=== PATIENT | male | born 1940 | race Caucasian/White ===

== ENCOUNTER 2019-05-28 12:49 | Inpatient (IN) | payer OTHER ==
[~2019-05-28] VITALS: Ht 172.7 cm; Wt 104.3 kg
--- NOTE | ~2019-05-28 | HC ---
[facility] [place] [address] CONSULTATION Name: SAM JEFFRIES Room #: 213-P ADM IN M.R.#: [id number] Admission: 05/28/19 Attend Phys: Cassandra Martínez MD Discharge: Date of : 40 Report #: [id number] THIS REPORT FOR: cc: SARAH - Family physician unknown SARAH - Family physician unknown Ana Martins MD ~ CC: Cassandra SMITH unknown REASON FOR CONSULTATION: Elevated creatinine. HISTORY OF PRESENT ILLNESS: This is a 79-year-old with extensive past medical history including severe cardiomyopathy with an ejection fraction of around 20%. He is status post AICD. He was admitted on 05/28/2019 with diarrhea, reduced oral intake. He was found to have diverticulitis and was initiated on appropriate treatment for that. He is also known to have ventricular tachycardia, COPD and was maintained on oxygen. He does not recall ever being told he has kidney problems. He does not see any kidney doctors. However, looking back, it does look like that the patient has a creatinine value of 1.5 back in 2010. No recent laboratory values before his recent admission on 05/28/2019. On presentation, his creatinine was 2.0 and had risen up to 2.4. The patient is currently being treated for diverticulitis, for C. diff. He is followed by Cardiology, GI. The patient ran into some issues with hypotension. His pacemaker also has fired during his hospital stay. It does look like that the patient's creatinine has been fluctuating in the last couple of days anywhere from 2 to 2.5. Most recently, his creatinine is down to 2.4. PAST MEDICAL HISTORY: 1. Cardiomyopathy. 2. Ejection fractions of around 20%. 3. Coronary artery disease, not amenable to any intervention. 4. Chronic obstructive pulmonary disease, maintained on oxygen. 5. Recent diverticulitis. 6. Chronic kidney disease based on prior laboratory values. 7. Hyperlipidemia. ALLERGIES: CONTRAST. MEDICATIONS: 1. Metoprolol. 2. Spironolactone. 3. Aspirin. 4. Albuterol. 5. Simvastatin. 6. Valsartan. FAMILY HISTORY: No known chronic kidney disease. [facility] [address] [place] [address] CONSULTATION Name: SAM JEFFRIES Room #: 213-P [facility] IN .R.#: [id number] Admission: 05/28/19 Attend Phys: Cassandra Martínez MD Discharge: Date of : 40 Report #: [id number] SOCIAL HISTORY: She denies drug or alcohol abuse. REVIEW OF SYSTEMS: GENERAL: Significant for lethargy and weakness before his presentation. CARDIOVASCULAR: No chest pain or palpitation, but his pacemaker has fired repeatedly. PULMONARY: Maintained on chronic oxygen. GASTROINTESTINAL: As per the history of present illness. GENITOURINARY: No frequency, no urgency. MUSCULOSKELETAL: No back pain, no morning stiffness. SKIN: No rash or ulcerations. PHYSICAL EXAMINATION: GENERAL: Alert, oriented, not in distress. VITAL SIGNS: Temperature 36.4, blood pressure is 133/68. HEAD AND NECK: No jugular venous distention. CHEST: No crackles. CARDIOVASCULAR: No rub detected. ABDOMEN: Soft, nontender. EXTREMITIES: Lower extremities, +2 edema. LABORATORY DATA: Reviewed. White blood cell count is 20.2. Sodium is 137, potassium is 3.5, BUN is 36, creatinine is 2.4. Vancomycin level back in 06/01/2019 was 11. C. diff positive. IMPRESSION AND PLAN: 1. Acute kidney injury. 2. Chronic kidney disease. 3. Cardiorenal syndrome. 4. Clostridium difficile. 5. Cardiomyopathy. 6. Hypertension. 7. Diverticulitis. 8. Status post coronary artery bypass graft with coronary artery disease. 9. Basic acute kidney injury is multifactorial and likely related to his cardiorenal syndrome, his current ongoing infectious issues including the diverticulitis and Clostridium difficile. He does have significant bilateral lower extremity edema. 10. Initiate diuresis. There is expected to see some rising of the creatinine with the diuresis initiation. 11. Initiate basic workup for his chronic kidney disease. 12. Baseline creatinine seems to be anywhere from 2-2.4; however, I would like to obtain the medical record from his primary care physician. The last creatinine I have on him back in 2010 was elevated at 1.5, suggesting chronic kidney disease, likely related to a cardiorenal syndrome. [address] [address] CONSULTATION Name: SAM JEFFRIES Room #: 213-P ADM IN M.R.#: [id number] Admission: 05/28/19 Attend Phys: Cassandra Martínez MD Discharge: Date of : 40 Report #: [id number] 13. Watch electrolytes. 14. Watch volume status. 15. Avoid nephrotoxins. By: 1048 [id number] Ana Martins, /nt
[~2019-05-28 12:49] MED LIST: ASPIRIN EC81 M1; DIOVAN160 MG; LIDODERM 5%1 PATCH TOP; NIASPAN ER 101000 M1; PERCOCET 5-3251 EACH PO; PREDNISONE50 MG PO; SIMVASTATIN40 MG; TOPROL XL50 MG; ZPAK PO
[2019-05-28 12:52] VITALS: BP 116/80
[2019-05-28 13:47] LABS: HEMATOCRIT 44.8 % (42.0-52.0); MCH 31.5 pg (26.0-34.0); MCHC 33.4 g/dL (28.0-37.0); MCV 94.1 fL (80.0-100.0); PLATELET COUNT 185 thou/uL (150-400); RBC 4.76 mil/uL (4.50-6.00); RDW 13.6 % (10.5-14.5); WBC 14.5 thou/uL (4.0-11.0)
[2019-05-28 13:59] LABS: CALCIUM 9.2 mg/dL (8.5-10.1); POTASSIUM 4.1 mmol/L (3.5-5.1)
[2019-05-28 14:05] LABS: ALBUMIN 3.5 g/dL (3.4-5.0); TOTAL BILIRUBIN 1.1 mg/dL (<0.1-1.0); TOTAL PROTEIN 7.1 g/dL (6.4-8.2)
[2019-05-28 14:10] LABS: URINE BILIRUBIN 1+ (Negative); URINE BLOOD TRACE (Negative); URINE CLARITY CLEAR; URINE COLOR YELLOW; URINE GLUCOSE-RANDOM* NEGATIVE (Negative); URINE KETONES NEGATIVE (Negative); URINE LEUKOCYTES-REFLEX TRACE (Negative); URINE NITRITE-REFLEX NEGATIVE (Negative); URINE PROTEIN (DIPSTICK) NEGATIVE (Negative); URINE UROBILINOGEN 0.2 E.U./dl (0.2-1.0)
[2019-05-28 14:35] LABS: ABSOLUTE NEUTROPHILS 10.2 thou/uL (1.4-8.2); PLATELET ESTIMATE NORMAL
[2019-05-28 15:12] VITALS: BP 94/50
[2019-05-28 16:29] VITALS: BP 127/61
[2019-05-28] MEDS ORDERED: SIMVASTATIN80 MG PO (19:35)
[2019-05-28] MEDS ORDERED: VALSARTAN160 MG PO (19:36)
[2019-05-28] MEDS ORDERED: SPIRONOLACTONE25 M1 PO (19:36)
[2019-05-28] MEDS ORDERED: LOPRESSOR50 MG PO (19:38)
[2019-05-28] MEDS ORDERED: VENTOLIN HFA INH8 GM INH (19:47)
[2019-05-28] MEDS ORDERED: SYMBICORT160 MCG/4. INH (19:48)
[2019-05-28] MEDS ORDERED: SPIRIVA18 MCG INH (19:51)
[2019-05-28] MEDS ORDERED: ASA81BEC PO (19:52)
[2019-05-28] MEDS ORDERED: NF NEB (19:55)
[2019-05-28 19:57] VITALS: BP 95/72
[2019-05-29 00:48] VITALS: BP 91/49
[2019-05-29 06:15] VITALS: BP 99/47
[2019-05-29 06:25] LABS: CALCIUM 8.2 mg/dL (8.5-10.1); POTASSIUM 4.3 mmol/L (3.5-5.1)
[2019-05-29 08:12] VITALS: BP 98/40
--- NOTE | 2019-05-29 15:40 | 2DMMODE ---
[facility] [address] [place] [address] 2 D/M-MODE ECHOCARDIOGRAM Name: SAM JEFFRIES Room #: 456-P ADM IN M.R.#: [id number] Admission: 05/28/19 Attend Phys: Cassandra Martínez MD Discharge: Date of : 40 Report #: [id number] THIS REPORT FOR: cc: FAM - Family physician unknown FAM - Family physician unknown Joshua Piper MD ~ APPROVED REPORT Study performed: 05/29/2019 14:54:58 EXAM: Comprehensive 2D, Doppler, and color-flow Echocardiogram Patient Location: Bedside Room #: [facility] Status: stat BSA: 2.10 HR: 103 bpm BP: 98/40 mmHg Rhythm: Tachycardia Other Information Study Quality: Adequate Technically limited study due to COPD. Indications ICD discharge, hypotension. Hx: CABG, ISCM, COPD. 2D Dimensions RVDd: 40.14 mm IVSd: 8.50 (7-11mm) LVOT Diam: 24.53 (18-24mm) LVDd: 58.23 mm PWd: 7.68 (7-11mm) LVDs: 51.63 (25-40mm) Aortic Root: 31.10 mm Volumes Left Atrial Volume (Systole) Single Plane 4CH: 45.92 mL Single Plane 2CH: 49.32 mL LA ESV Index: 24.00 mL/m2 Aortic Valve AoV Peak Miguel.: 1.60 m/s AO Peak Gr.: 10.28 mmHg LVOT Max P.96 mmHg LVOT Max V: 0.99 m/s [facility] [address] [place] [address] 2 D/M-MODE ECHOCARDIOGRAM Name: SAM JEFFRIES Room #: 456-P ADM IN M.R.#: [id number] Admission: 05/28/19 Attend Phys: Paco Ortiz Discharge: Date of : 40 Report #: [id number] Vmax: 2.93 cm2 Pulmonary Valve PV Peak Miguel.: 1.30 m/s PV Peak Gr.: 6.77 mmHg Tricuspid Valve TR Peak Miguel.: 2.06 m/s RAP Estimate: 5.00 mmHg TR Peak Gr.: 17.00 mmHg PA Pressure: 22.00 mmHg Left Ventricle Left ventricle is at the upper limits of normal. There is normal left ventricular wall thickness. Left ventricular systolic function is mild to moderately decreased. LVEF is 25-30%. This study is not technically sufficient to allow evaluation of the LV diastolic function. Right Ventricle The right ventricle is normal size. Atria The left atrium size is normal. The right atrium size is normal. Aortic Valve The aortic valve is normal in structure. No aortic regurgitation is present. There is no aortic valvular stenosis. Mitral Valve The mitral valve is normal in structure. Trace to mild mitral regurgitation. Tricuspid Valve The tricuspid valve is normal in structure. Trace tricuspid regurgitation. Estimated PAP is 20-25mmHg. Pulmonic Valve Pulmonic valve is not well visualized. Great Vessels The aortic root is normal in size. Ascending aorta is not well visualized. IVC is normal in size and collapses >50% with inspiration. Pericardium There is no pericardial effusion. [facility] [address] [place] [address] 2 D/M-MODE ECHOCARDIOGRAM Name: SAM JEFFRIES Room #: 456-P ADM IN ..#: [id number] Admission: 05/28/19 Attend Phys: Paco Ortiz Discharge: Date of : 40 Report #: [id number] <Conclusion> Left ventricle is at the upper limits of normal. LVEF is 25-30%. The aortic valve is normal in structure. The mitral valve is normal in structure. Trace to mild mitral regurgitation. The tricuspid valve is normal in structure. Trace tricuspid regurgitation. Estimated PAP is 20-25mmHg. There is no pericardial effusion. <ELECTRONICALLY SIGNED> By: Joshua Piper MD 05/29/19 1540 39 39 Joshua Piper MD /INF
[2019-05-29 16:30] VITALS: BP 129/81
[2019-05-29 19:48] VITALS: BP 110/54
[2019-05-30 00:07] VITALS: BP 90/52
[2019-05-30 04:37] VITALS: BP 111/59
[2019-05-30 07:35] VITALS: BP 109/68
[2019-05-30 08:27] LABS: BE(vivo) -5.7 mmol/L (-2 to +3); HCO3 15.8 mmol/L (22.0-26.0); PCO2 22.1 mmHg (35.0-45.0); PO2 131.7 mmHg (80.0-100.0); pH 7.471 (7.360-7.450); sO2 98.9 % (92.0-98.0)
[2019-05-30 12:02] VITALS: BP 105/60
[2019-05-30 15:47] LABS: ABSOLUTE NEUTROPHILS 15.7 thou/uL (1.4-8.2); BASOPHILS 0.5 % (0.0-2.0); EOSINOPHILS 0.2 % (0.0-3.0); HEMATOCRIT 41.5 % (42.0-52.0); HEMOGLOBIN 13.7 gm/dL (14.0-18.0); LYMPHOCYTES 4.6 % (24.0-44.0); MCH 31.1 pg (26.0-34.0); MCHC 32.9 g/dL (28.0-37.0); MCV 94.4 fL (80.0-100.0); MONOCYTES 11.2 % (1.0-8.0); PLATELET COUNT 198 thou/uL (150-400); POLYS 83.5 % (36.0-66.0); RBC 4.39 mil/uL (4.50-6.00); RDW 13.8 % (10.5-14.5); WBC 18.8 thou/uL (4.0-11.0)
[2019-05-30 15:55] LABS: CALCIUM 8.2 mg/dL (8.5-10.1); CREATININE 2.4 mg/dL (0.7-1.3); POTASSIUM 4.3 mmol/L (3.5-5.1)
[2019-05-30 17:25] VITALS: BP 104/53
[2019-05-30 22:06] VITALS: BP 110/58
[2019-05-31 04:30] VITALS: BP 123/75
[2019-05-31 05:16] LABS: CALCIUM 8.9 mg/dL (8.5-10.1); CREATININE 2.5 mg/dL (0.7-1.3); POTASSIUM 4.7 mmol/L (3.5-5.1)
[2019-05-31 08:29] VITALS: BP 133/96
[2019-05-31 12:10] VITALS: BP 97/53
[2019-05-31 16:37] VITALS: BP 104/64
[2019-05-31 20:41] VITALS: BP 119/71
[2019-06-01] VITALS (7 sets, daily range): BP systolic 101–116; BP diastolic 45–87
[2019-06-01 05:48] LABS: CALCIUM 8.8 mg/dL (8.5-10.1); CREATININE 2.1 mg/dL (0.7-1.3)
[2019-06-02 04:45] VITALS: BP 150/68
[2019-06-02 07:50] VITALS: BP 131/75
[2019-06-02 11:15] VITALS: BP 140/78
[2019-06-02 11:32] LABS: HEMOGLOBIN 13.8 gm/dL (14.0-18.0); MCHC 32.9 g/dL (28.0-37.0); MCV 94.1 fL (80.0-100.0); PLATELET COUNT 260 thou/uL (150-400); RBC 4.47 mil/uL (4.50-6.00); WBC 20.2 thou/uL (4.0-11.0)
[2019-06-02 11:39] LABS: CALCIUM 9.3 mg/dL (8.5-10.1); CREATININE 2.4 mg/dL (0.7-1.3); POTASSIUM 3.5 mmol/L (3.5-5.1)
[2019-06-02 12:08] LABS: ABSOLUTE NEUTROPHILS 19.4 thou/uL (1.4-8.2); PLATELET ESTIMATE NORMAL
[2019-06-02 16:30] VITALS: BP 107/58
[2019-06-02 19:44] VITALS: BP 109/66
[2019-06-03 04:40] VITALS: BP 117/66
[2019-06-03 08:04] VITALS: BP 133/68
[2019-06-03 12:07] VITALS: BP 133/74
[2019-06-03 13:10] VITALS: BP 133/74
[2019-06-03 17:43] VITALS: BP 133/76
[2019-06-03 20:10] VITALS: BP 125/64
[2019-06-04 04:45] VITALS: BP 137/76
[2019-06-04 06:27] LABS: ALBUMIN 2.7 g/dL (3.4-5.0); CALCIUM 8.9 mg/dL (8.5-10.1); CREATININE 2.3 mg/dL (0.7-1.3); PHOSPHORUS 3.5 mg/dL (2.5-4.9); POTASSIUM 4.1 mmol/L (3.5-5.1)
[2019-06-04 07:49] VITALS: BP 140/83
[2019-06-04 11:28] VITALS: BP 145/86
[2019-06-04] MEDS ORDERED: PROTONIX40 M2 PO (12:11)
[2019-06-04] MEDS ORDERED: PREDNISONE 20 M20 MG PO (12:11)
[2019-06-04] MEDS ORDERED: FIRVANQ50 MG/1 ML PO (12:11)
[2019-06-04] MEDS ORDERED: PACERONE 200 M200 M1 PO (12:11)
[2019-06-04] MEDS ORDERED: DEMADEX20 MG PO (12:11)
[2019-06-04 13:14] VITALS: BP 133/74
[2019-06-04 13:44] VITALS: BP 133/74
[2019-06-04] MEDS ORDERED: VANCOCIN 125 M125 M1 PO (18:16)
--- NOTE | 2019-06-06 15:32 | EKG ---
[facility] [place] [address] ELECTROCARDIOGRAM REPORT Name: SAM JEFFRIES Room #: 213-P DIS IN M.R.#: [id number] Admission: 05/28/19 Attend Phys: Cassandra Martínez MD Discharge: 06/04/19 Date of : 40 Report #: [id number] THIS REPORT FOR: cc: SARAH - Family physician unknown FAM - Family physician unknown Palomo Gamino MD [facility] ~ THIS REPORT FOR: //name// [facility] ED Test Date: 2019-05-28 Test Time: 12:58:18 Pat Name: SAM JEFFRIES Department: Room: [facility] Gender: M Soloist Dancer: [facility] : 1940 Requested By: Natasha David Order Number: [id number] MD: Palomo Gamino Measurements Intervals [place] Rate: 110 P: 247 [place]: 137 QRS: 43 QRSD: 159 T: -81 QT: 379 QTc: 513 Interpretive Statements Sinus or ectopic atrial tachycardia LBBB Compared to ECG 04/21/2013 15:29:46 Premature ventricular complexes are no longer present Electronically Signed On 05-30-2019 9:07:23 SEXUAL ABUSE COUNSELLOR by Palomo Gamino [email or web address] <ELECTRONICALLY SIGNED> By: Palomo Gamino MD, [facility] 05/30/19 0907 [id number] [id number] Palomo Gamino MD, [facility] /EPI
--- NOTE | 2019-06-06 15:33 | EKG ---
[facility] [place] [address] ELECTROCARDIOGRAM REPORT Name: SAM JEFFRIES Room #: 213- DIS IN M.R.#: [id number] Admission: 05/28/19 Attend Phys: Cassandra Martínez MD Discharge: 06/04/19 Date of : 40 Report #: [id number] THIS REPORT FOR: cc: FAM - Family physician unknown FAM - Family physician unknown Kentrell Patel MD ~ THIS REPORT FOR: //name// [facility] Test Date: 2019-05-30 Test Time: 08:16:39 Pat Name: SAM JEFFRIES Department: Room: 213 Gender: M Globe Changer: CODIE : 1940 Requested By: Justin Snell Order Number: [id number] MD: Kentrell Patel Measurements Intervals [place] Rate: 122 P: [place]: QRS: 75 QRSD: 159 T: -87 QT: 360 QTc: 513 Interpretive Statements Probable sinus tachycardia IVCD, consider atypical LBBB Compared to ECG 04/21/2013 15:29:46 No significant change Electronically Signed On 05-30-2019 16:33:01 ACETONE RECOVERY WORKER by Kentrell Patel [email or web address] <ELECTRONICALLY SIGNED> By: Kentrell Patel MD 05/30/19 1633 5 5 Kentrell Patel MD /EPI
--- NOTE | 2019-06-06 15:33 | EKG ---
[facility] [place] [address] ELECTROCARDIOGRAM REPORT Name: SAM JEFFRIES Room #: 213- DIS IN M.R.#: [id number] Admission: 05/28/19 Attend Phys: Cassandra Martínez MD Discharge: 06/04/19 Date of : 40 Report #: [id number] THIS REPORT FOR: cc: FAM - Family physician unknown FAM - Family physician unknown Palomo Gamino MD [facility] ~ THIS REPORT FOR: //name// [facility] Test Date: 2019-05-29 Test Time: 17:15:21 Pat Name: SAM JEFFRIES Department: Room: [facility] Gender: M Slide Developer: Paco TALAMANTES : 1940 Requested By: Justin Snell Order Number: [id number] MD: Palomo Gamino Measurements Intervals [place] Rate: 114 P: 27 [place]: 132 QRS: 67 QRSD: 162 T: -74 QT: 374 QTc: 516 Interpretive Statements Sinus tachycardia Left bundle branch block Baseline wander in lead(s) II,III,aVF Compared to ECG 04/21/2013 15:29:46 premature ventricular complexes are now present Electronically Signed On 05-30-2019 9:37:28 TREATING PLANT OPERATOR by Palomo Gamino [email or web address] <ELECTRONICALLY SIGNED> By: Palomo Gamino MD, FAC 05/30/19 0937 1715 1715 Palomo Gamino MD, [facility] /EPI
== END 2019-06-04 14:33 | disposition home health service (06) | DRG 871 ==
LOC: ER 12:49 → EROBS 14:55 → 2N 14:55 → 4W 14:55 → 2N 05-29 16:05
PROVIDERS: Hospitalist; Internal Medicine Pulmonary Disease; Physician Assistant; ADMIT Hospitalist
PROC: 02HV33Z Insertion of Infusion Device into Superior Vena Cava, Percutaneous Approach (ICD-10-PCS; principal; 2019-05-30)
PROC: 5A09357 Assistance with Respiratory Ventilation, Less than 24 Consecutive Hours, Continuous Positive Airway Pressure (ICD-10-PCS; 2019-05-31)
PROC: 5A09357 Assistance with Respiratory Ventilation, Less than 24 Consecutive Hours, Continuous Positive Airway Pressure (ICD-10-PCS; 2019-06-01)
PROC: 5A09357 Assistance with Respiratory Ventilation, Less than 24 Consecutive Hours, Continuous Positive Airway Pressure (ICD-10-PCS; 2019-06-02)
DX: A41.9 Sepsis, unspecified organism (principal); N17.0 Acute kidney failure with tubular necrosis; J96.01 Acute respiratory failure with hypoxia; I50.23 Acute on chronic systolic (congestive) heart failure; K57.92 Diverticulitis of intestine, part unspecified, without perforation or abscess without bleeding; E87.1 Hypo-osmolality and hyponatremia; A04.72 Enterocolitis due to Clostridium difficile, not specified as recurrent; N18.4 Chronic kidney disease, stage 4 (severe); I13.0 Hypertensive heart and chronic kidney disease with heart failure and stage 1 through stage 4 chronic kidney disease, or unspecified chronic kidney disease; E78.5 Hyperlipidemia, unspecified; R65.20 Severe sepsis without septic shock; I25.10 Atherosclerotic heart disease of native coronary artery without angina pectoris; N40.0 Benign prostatic hyperplasia without lower urinary tract symptoms; K64.4 Residual hemorrhoidal skin tags; K64.8 Other hemorrhoids; I25.5 Ischemic cardiomyopathy; Z66 Do not resuscitate; E78.00 Pure hypercholesterolemia, unspecified; J43.9 Emphysema, unspecified; Z79.2 Long term (current) use of antibiotics; Z82.49 Family history of ischemic heart disease and other diseases of the circulatory system; Z79.82 Long term (current) use of aspirin; Z95.1 Presence of aortocoronary bypass graft; Z79.899 Other long term (current) drug therapy; Z91.041 Radiographic dye allergy status; Z95.810 Presence of automatic (implantable) cardiac defibrillator; Z80.0 Family history of malignant neoplasm of digestive organs
CPT/HCPCS: 10040; 10081; 27000

== ENCOUNTER → 2019-06-10 | Outpatient (CLI) | payer OTHER ==
[~2019-06-10] MED LIST changes: +AMIODARONE HCL400 MG PO; +ASA81BEC PO; +DEMADEX20 MG PO; +FIRVANQ50 MG/1 ML PO; +KEFLEX500 M1 PO; +LOPRESSOR50 MG PO; +LOPRESSOR50 PO; +MEXILETINE HCL200 M1 PO; +NF NEB; +PACERONE 200 M200 M1 PO; +PREDNISONE 20 M20 MG PO; +PROTONIX40 M2 PO; +SIMVASTATIN80 MG PO; +SPIRIVA18 MCG INH; +SPIRONOLACTONE25 M1 PO; +SYMBICORT160 MCG/4. INH; +VALSARTAN160 MG PO; +VANCOCIN 125 M125 M1 PO; +VENTOLIN HFA INH8 GM INH
== END ==
LOC: SJCVC 15:02
DX: R94.31 Abnormal electrocardiogram [ECG] [EKG] (principal); I44.7 Left bundle-branch block, unspecified; I47.2 Ventricular tachycardia; I25.5 Ischemic cardiomyopathy; Z95.810 Presence of automatic (implantable) cardiac defibrillator

== ENCOUNTER → 2019-07-09 | Outpatient (CLI) | payer OTHER | LOC: SJCVC 13:06 | DX: Z45.02 Encounter for adjustment and management of automatic implantable cardiac defibrillator (principal); I47.2 Ventricular tachycardia; I42.9 Cardiomyopathy, unspecified; I25.5 Ischemic cardiomyopathy; I25.810 Atherosclerosis of coronary artery bypass graft(s) without angina pectoris; J44.9 Chronic obstructive pulmonary disease, unspecified; E78.00 Pure hypercholesterolemia, unspecified; Z95.1 Presence of aortocoronary bypass graft; Z79.82 Long term (current) use of aspirin; Z79.899 Other long term (current) drug therapy; Z95.810 Presence of automatic (implantable) cardiac defibrillator; Z87.891 Personal history of nicotine dependence ==